=== PATIENT | male | born 1950 | race Hispanic/Latino ===

== ENCOUNTER → 2022-07-14 | Emergency (ER) | payer MEDICARE ==
[~2022-07-14] VITALS: Ht 188 cm; Wt 96.2 kg
[~2022-07-14] MED LIST: COZAAR25 MG PO; JARDIANCE10 MG PO; JARDIANCE25 MG PO; LEVEMIR100 UNIT/1 SUB-Q; METFORMIN HCL1000 MG PO
[2022-07-14 21:18] VITALS: BP 135/79
== END ==
LOC: ED 19:39
DX: H43.393 Other vitreous opacities, bilateral (principal); E11.9 Type 2 diabetes mellitus without complications; I10 Essential (primary) hypertension; Z79.899 Other long term (current) drug therapy; Z79.84 Long term (current) use of oral hypoglycemic drugs
CPT/HCPCS: 99284-25